=== PATIENT | male | born 1960 | race Caucasian/White ===

== ENCOUNTER → 2020-12-04 16:53 | Outpatient (CLI) | payer OTHER, SELFPAY | PROVIDERS: PCP Family Medicine; Visit Provider Family Medicine | DX: T14.8XXA Other injury of unspecified body region, initial encounter (principal) | CPT/HCPCS: 87070; 87077; 87186; 87205 ==

== ENCOUNTER 2021-11-24 12:54 | Emergency (ER) | payer OTHER, SELFPAY ==
[2021-11-24] VITALS (10 sets, daily range): BP systolic 145–163; BP diastolic 95–107; PULSE 61–73; RESP 12–23; TEMP 37.1; O2SAT 97–99; BMI 25.0
--- NOTE | 2021-11-24 12:51 | ECG_ITS ---
APPROVED REPORT Exam: Resting ECG HR:68 bpm ECG Measurements Heart Rate 68 AXES ND 174 P -13 QRSd 95 QRS 15 QT 391 T 40 QTc 409 Conclusion SINUS RHYTHM NONSPECIFIC T-WAVE ABNORMALITY BORDERLINE ECG UNCONFIRMED REPORT Electronically signed by : Sukhi Vera MD 11/24/2021 21:00:52
--- NOTE | 2021-11-24 12:57 | PC.NURSE ---
ROSALINA LAWSON at
--- NOTE | 2021-11-24 12:57 | PC.NURSE ---
ED MD AT BEDSIDE FOR EVALUATION
--- NOTE | 2021-11-24 12:59 | CT_ITS ---
FINAL REPORT CLINICAL HISTORY: weakness left side, dizziness FINDINGS: Axial images of the head were obtained without contrast. Coronal reformatted images were also obtained.This study was performed with techniques to keep radiation doses as low as reasonably achievable (ALARA). Individualized dose reduction techniques using automated exposure control or adjustment of mA and/or kV according to the patient's size were employed. There is no evidence of intracranial hemorrhage or mass. The ventricular size is within normal limits. There is no evidence of shift of the midline structures. No abnormal extra axial fluid collection is identified. No skull abnormality is seen on the bone window images. IMPRESSION: No acute intracranial abnormality. Reviewed, Interpreted and Dictated by Negrito Malone III, MD Transcribed by Cynthia Keith Authenticated and [facility]
--- NOTE | 2021-11-24 13:08 | PC.NURSE ---
pt to radiology via
--- NOTE | 2021-11-24 13:09 | PC.NURSE ---
PT TO CT PER WC AT THIS TIME
--- NOTE | 2021-11-24 13:13 | PC.NURSE ---
PT RETURNED FORM CT AT THIS TIME
[2021-11-24 13:19] LABS: Basophils # 0.1 K/mm3 (0-0.2); Basophils % 1.2 % (0.1-2.0); Eosinophils # 0.1 K/mm3 (0.0-0.4); Eosinophils % 1.5 % (0.1-12.0); Hemoglobin 14.5 g/dL (14.1-18.0); Lymphocytes % 28.1 % (10-50); Mean Corpuscular HGB Conc 33.7 g/dL (31.8-35.4); Mean Corpuscular Hemoglobin 27.6 pg (27.0-31.2); Mean Corpuscular Volume 81.7 fl (80-94); Mean Platelet Volume 7.5 fl (7.4-10.4); Monocytes # 0.4 K/mm3 (0.1-1.0); Monocytes % 5.6 % (1.7-9.3); Neutrophils # 4.6 K/mm3 (1.8-7.8); Neutrophils % 63.5 % (37.0-80.0); Platelet Count 277 K/mm3 (142-424); Red Blood Count 5.27 M/mm3 (4.60-6.20); Red Cell Distribution Width 12.6 % (11.5-17.5); White Blood Count 7.2 K/mm3 (4.8-10.8)
[2021-11-24 13:22] LABS: Chloride 105 mmol/L (98-107); Sodium 137 mmol/L (136-145)
[2021-11-24 13:23] LABS: Potassium 3.7 mmoL/L (3.5-5.1)
[2021-11-24 13:25] LABS: Alanine Aminotransferase 15 U/L (12-78); Alkaline Phosphatase 173 U/L (38-126); Aspartate Amino Transferase 29 U/L (17-59); Bilirubin,Total 0.5 mg/dl (0.2-1.3); Blood Urea Nitrogen 11 mg/dl (9-20); Creatinine Clearance Estimated 118 mL/min (50-200); Estimated Glomerular Filt Rate 99 ml/min (>60); GFR (African American) 120 ML/MIN (>60)
[2021-11-24 13:26] LABS: Albumin Level 4.2 g/dl (3.5-5.0); Albumin/Globulin Ratio 1.4 (1.1-1.8); Anion Gap 9.7 mEq/L (5-15); Carbon Dioxide 26 mmol/L (22.0-30.0); Glucose 116 mg/dl (74-100); Total Protein,Serum 7.2 g/dl (6.3-8.2)
[2021-11-24 13:37] LABS: Calcium 9.7 mg/dl (8.4-10.2)
--- NOTE | 2021-11-24 14:33 | HMH.EDGENADL ---
ED Disposition Clinical Impression: Hypertension Qualifiers: Hypertension type: primary hypertension Qualified Code(s): I10 - Essential (primary) hypertension Disposition: Home, Self-Care Condition on Discharge: Good Prescriptions: hydroCHLOROthiazide [Hydrochlorothiazide] 12.5 mg PO DAILY #14 cap Transmission Status: Pending to [id number] Referrals: Jasmyn López APRN [Primary Care Provider] - - Critical Care Critical Care Time: No Attestation: On 11/24/21, the high probability of a clinically significant, sudden or life threatening deterioration of the following system(s) required my full and direct attention, intervention and personal management. The time I documented below is in addition to time spent performing reported procedures but includes the following listed in this critical care notation. Medical Decision Making - Medical Records Medical records reviewed: Yes: I reviewed the patient's medical records. - [place] Inquiry Pt receiving controlled substance: No Vital Signs: 11/24/21 12:54 11/24/21 13:00 11/24/21 13:03 Temperature 98.8 F Temperature Source Oral Pulse Rate 73 67 Pulse Rate [Brachial] 68 Respiratory Rate 18 16 17 Blood Pressure 152/107 H 160/96 H Blood Pressure [Right Arm] 163/100 H Blood Pressure Mean 125 117 Blood Pressure Mean [Right Arm] 121 Blood Pressure Source [Right Arm] Automatic Cuff Blood Pressure Position [Right Arm] Sitting 02 Sat by Pulse Oximetry 98 98 99 Oxygen Delivery Method Room Air 11/24/21 13:05 11/24/21 13:30 11/24/21 14:00 Temperature Temperature Source Pulse Rate 65 66 61 Pulse Rate [Brachial] Respiratory Rate 17 23 23 Blood Pressure 157/101 H 154/100 H 152/97 H Blood Pressure [Right Arm] Blood Pressure Mean 121 125 119 Blood Pressure Mean [Right Arm] Blood Pressure Source [Right Arm] Blood Pressure Position [Right Arm] 02 Sat by Pulse Oximetry 98 98 Oxygen Delivery Method 11/24/21 14:30 11/24/21 15:01 Temperature Temperature Source Pulse Rate 62 68 Pulse Rate [Brachial] Respiratory Rate 12 18 Blood Pressure 145/99 H 146/101 H Blood Pressure [Right Arm] Blood Pressure Mean 119 115 Blood Pressure Mean [Right Arm] Blood Pressure Source [Right Arm] Blood Pressure Position [Right Arm] 02 Sat by Pulse Oximetry 99 98 Oxygen Delivery Method - Lab Data Lab Results 11/24/21 13:00: WBC 7.2, RBC 5.27, Hgb 14.5, Hct 43.0, MCV 81.7, MCH 27.6, MCHC 33.7, RDW 12.6, Plt Count 277, MPV 7.5, Neut % (Auto) 63.5, Lymph % (Auto) 28.1, Hidalgo % (Auto) 5.6, Eos % (Auto) 1.5, Baso % (Auto) 1.2, Neut # (Auto) 4.6, Lymph # (Auto) 2.0, Hidalgo # (Auto) 0.4, Eos # (Auto) 0.1, Baso # (Auto) 0.1 11/24/21 13:00: Sodium 137, Potassium 3.7, Chloride 105, Carbon Dioxide 26, Anion Gap 9.7, BUN 11, Creatinine 0.80, Estimated Creat Clear 118, Estimated GFR 99, Est GFR ( Amer) 120, Glucose 116 H, Calcium 9.7, Total Bilirubin 0.5, AST 29, ALT 15, Alkaline Phosphatase 173 H, Total Protein 7.2, Albumin 4.2, Globulin 3.0, Albumin/Globulin Ratio 1.4 Result diagrams: 11/24/21 13:00 11/24/21 13:00 Orders (Tests/Meds): ED MEDICATIONS Generic Name Dose Route Start Last Admin Trade Name Freq PRN Reason Stop Dose Admin Sodium Chloride 10 ml 11/24/21 13:04 Sodium Chloride 0.9% 10ml Flush Syringe IV 12/24/21 13:03 NEEDED PRN Maintain IV Site - CT Data CT Scan: Head Time Received: 15:[address] Reviewed: Yes: I have reviewed the patient's CT results, I have viewed the radiologist's interpretation Preliminary Findings: Normal/NAD - ECG Data Tracing #1 I reviewed this ECG and interpreted as documented below: Normal jugular rate of 60 bpm, KS interval 174 ms, normal QTC. Sinus rhythm with nonspecific changes. ECG initial impression date: 11/24/21 ECG initial impression time: 12:51 - Reevaluation(s) Time: 15:17 Reevaluation #1: Patient's blood pressure is improv
--- NOTE | 2021-11-24 15:12 | PC.NURSE ---
PT AND FAMILY UPDATED ON POC, MD WILL BE IN TO SEE PT. NO NEEDS AT THIS TIME
--- NOTE | 2021-11-24 15:16 | PC.NURSE ---
ED MD AT BEDSIDE TO REEVALUATE PT AND DISCUSS POC
== END 2021-11-24 15:51 | disposition home or self-care (01) ==
PROVIDERS: Emergency Provider Emergency Medicine; PCP Nurse Practitioner Family
DX: I10 Essential (primary) hypertension (principal); R07.9 Chest pain, unspecified; Z79.82 Long term (current) use of aspirin
CPT/HCPCS: 70450; 80053; 85025; 93005; 99284

== ENCOUNTER → 2021-12-15 12:52 | Outpatient (CLI) | payer OTHER, SELFPAY ==
--- NOTE | 2021-12-15 12:52 | CT_ITS ---
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 poss seen on lung. FINDINGS: Axial CT images of the chest were obtained with contrast. Coronal reformatted images were also obtained. This study was performed with techniques to keep radiation doses as low as reasonably achievable, (ALARA). Individualized dose reduction techniques using automated exposure control or adjustment of mA and/or KV according to the patient's size were employed. There are borderline size subcarinal and right hilar lymph nodes. No axillary mass or adenopathy is identified. Lung window images demonstrate a 20 mm partially cavitary nodule in the lateral right lower lobe most worrisome for neoplasm. Limited images of the upper abdomen reveal no mass or localized inflammatory process. There is a moderate chronic T12 compression fracture. A sclerotic lesion is seen in T2 most worrisome for bony metastasis. There is a lytic and sclerotic mass in the left 5th posterior rib. There is a small lytic focus in the right 8th posterior rib. IMPRESSION: Partially cavitary 20 mm nodule in the lateral right lower lobe most worrisome for neoplasm. Metastasis versus primary lung neoplasm. Lytic and sclerotic bony lesions as described most worrisome for bony metastasis. Reviewed, Interpreted and Dictated by Negrito Malone III, MD Transcribed by Bean Guadalupe Authenticated and [facility]
== END ==
PROVIDERS: PCP Family Medicine; Visit Provider Family Medicine
DX: J98.4 Other disorders of lung (principal)
CPT/HCPCS: 71260; Q9967

== ENCOUNTER → 2022-01-14 08:43 | Outpatient (CLI) | payer OTHER, SELFPAY ==
--- NOTE | 2022-01-14 08:43 | MR_ITS ---
FINAL REPORT CLINICAL HISTORY: stroke with LUE deficit. pt states he had a stroke 3 weeks ago. FINDINGS: Multiplanar MR imaging of the brain was performed without contrast. There is mild age-appropriate atrophy. There are scattered foci of increased T2 signal in the cerebral white matter that have a nonspecific appearance but likely represent mild chronic ischemic/gliotic changes. There is no evidence of intracranial hemorrhage or mass. No abnormal ventricular dilatation is identified. No abnormal extra-axial fluid collection is seen. There are several small foci of restricted diffusion in the right centrum semiovale measuring up to 9 mm consistent with small, acute infarcts. There are also small foci of restricted diffusion in the right occipital lobe cortex consistent with acute infarcts. The posterior fossa and brainstem are unremarkable. Normal major vessel vascular flow voids are seen. IMPRESSION: Age-appropriate atrophy and mild chronic ischemic/gliotic changes. Multiple, small acute right hemispheric infarcts as above. Reviewed, Interpreted and Dictated by Negrito Malone III, MD Transcribed by Araceli De Los Santos Authenticated and [facility]
== END ==
PROVIDERS: PCP Family Medicine; Visit Provider Family Medicine
DX: I63.89 Other cerebral infarction (principal)
CPT/HCPCS: 70551

== ENCOUNTER 2022-01-24 14:00 | Outpatient (RCR) | payer OTHER, SELFPAY ==
--- NOTE | 2022-01-13 11:13 | HMH.OTOPEV ---
OT Inpatient Evaluation Rehab OT Outpatient Eval Start: 01/13/22 10:38 Freq: Status: Active Protocol: Document 01/13/22 10:41 [email or web address] (Rec: 01/13/22 11:12 [facility] [id number] E-signed By Elisha Baldwin, OT Outpatient Therapy Subjective History Subjective History Pt is a 61 year old male who reports to therapy for initial evaluation to left UE. Pt reports ~2 week ago he experienced weakness in left UE and the left side of his face. He was diagnosed with a CVA. Facial symptoms have resolved. His left UE weakness/numbness has improved significantly, but he does have some continued decreased fine motor/weakness through left hand. He is left hand dominant. 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 He is currently experiencing other health conditions. 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 He also reports he is currently undergoing several diagnostic tests because of a place found on his lung. Aside from other health conditions therapy observes full range of motion and MMT at left shoulder and elbow. Pt's right wrist AROM is within normal limits, but is slightly declined in strength. His range of motion at all digits are within normal limits. However, he complains continued slight numbness in the tips of his fingers. 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 He complains of having difficulty picking up small objects with left hand and
== END 2022-01-24 14:05 | disposition home or self-care (01) ==
LOC: OT 14:00
PROVIDERS: PCP Family Medicine; Visit Provider Family Medicine
DX: I69.354 Hemiplegia and hemiparesis following cerebral infarction affecting left non-dominant side
CPT/HCPCS: 97110; 97166; 97530

== ENCOUNTER → 2022-07-12 23:48 | Outpatient (CLI) | payer OTHER, SELFPAY | PROVIDERS: PCP Family Medicine; Visit Provider Family Medicine | DX: S61.401A Unspecified open wound of right hand, initial encounter (principal); B95.7 Other staphylococcus as the cause of diseases classified elsewhere | CPT/HCPCS: 87070; 87077; 87186; 87205 ==

== ENCOUNTER → 2022-08-09 23:12 | Outpatient (CLI) | payer OTHER, SELFPAY ==
[2022-08-09 19:08] LABS: Amphetamine/Metha Screen,Urine Negative ng/ml (<1000); Barbiturates Screen,Urine Negative ng/ml (<200)
[2022-08-09 19:09] LABS: Benzodiazepines Screen,Urine Negative ng/ml (<200)
[2022-08-09 19:10] LABS: Cannabinoid Screen,Urine Negative ng/ml (<50); Cocaine Screen,Urine Negative ng/ml (<300)
[2022-08-09 19:11] LABS: Methadone Screen,Urine Negative ng/ml (<300); Opiate Screen,Urine Negative ng/ml (<300)
[2022-08-09 19:12] LABS: Phencyclidine Screen,Urine Negative ng/ml (<25)
== END ==
PROVIDERS: PCP Family Medicine; Visit Provider Family Medicine
DX: G89.29 Other chronic pain (principal)
CPT/HCPCS: 80305

== ENCOUNTER → 2022-08-26 14:40 | Outpatient (CLI) | payer OTHER, SELFPAY ==
[2022-08-26 13:47] LABS: Amphetamine/Metha Screen,Urine Negative ng/ml (<1000)
[2022-08-26 13:48] LABS: Barbiturates Screen,Urine Negative ng/ml (<200)
[2022-08-26 13:49] LABS: Benzodiazepines Screen,Urine Negative ng/ml (<200); Cannabinoid Screen,Urine Negative ng/ml (<50)
[2022-08-26 13:50] LABS: Cocaine Screen,Urine Negative ng/ml (<300)
[2022-08-26 13:51] LABS: Methadone Screen,Urine Negative ng/ml (<300); Opiate Screen,Urine Negative ng/ml (<300)
[2022-08-26 13:52] LABS: Phencyclidine Screen,Urine Negative ng/ml (<25)
== END ==
PROVIDERS: PCP Family Medicine; Visit Provider Family Medicine
DX: Z79.899 Other long term (current) drug therapy (principal)
CPT/HCPCS: 80305

== ENCOUNTER → 2023-03-17 19:24 | Outpatient (CLI) | payer OTHER, SELFPAY ==
[2023-03-17 19:35] LABS: Coronavirus 19, PCR Not Detected (NotDetected); Influenza A, PCR Not Detected (NotDetected); Influenza B, PCR Not Detected (NotDetected)
== END ==
PROVIDERS: PCP Family Medicine; Visit Provider Family Medicine
DX: R06.02 Shortness of breath (principal); R05.9 Cough, unspecified; R51.9 Headache, unspecified
CPT/HCPCS: 87636

== ENCOUNTER → 2023-04-19 07:15 | Outpatient (CLI) | payer OTHER, SELFPAY ==
[2023-04-19 20:48] LABS: Barbiturates Screen,Urine Negative ng/ml (<200)
[2023-04-19 20:49] LABS: Amphetamine/Metha Screen,Urine Negative ng/ml (<1000)
[2023-04-19 20:50] LABS: Benzodiazepines Screen,Urine Negative ng/ml (<200); Cannabinoid Screen,Urine Negative ng/ml (<50)
[2023-04-19 20:52] LABS: Opiate Screen,Urine Negative ng/ml (<300)
[2023-04-19 20:53] LABS: Cocaine Screen,Urine Negative ng/ml (<300); Methadone Screen,Urine Negative ng/ml (<300)
[2023-04-19 20:55] LABS: Phencyclidine Screen,Urine Negative ng/ml (<25)
== END ==
PROVIDERS: PCP Family Medicine; Visit Provider Family Medicine
DX: Z79.899 Other long term (current) drug therapy (principal)
CPT/HCPCS: 80305

== ENCOUNTER 2023-05-24 18:22 | Outpatient (CLI) | payer OTHER, SELFPAY ==
[2023-05-24 18:43] LABS: Amphetamine/Metha Screen,Urine Negative ng/ml (<1000)
[2023-05-24 18:46] LABS: Barbiturates Screen,Urine Negative ng/ml (<200)
[2023-05-24 18:47] LABS: Benzodiazepines Screen,Urine Negative ng/ml (<200)
[2023-05-24 18:48] LABS: Cannabinoid Screen,Urine Negative ng/ml (<50); Cocaine Screen,Urine Negative ng/ml (<300)
[2023-05-24 18:49] LABS: Methadone Screen,Urine Negative ng/ml (<300)
[2023-05-24 18:50] LABS: Opiate Screen,Urine Negative ng/ml (<300)
[2023-05-24 18:52] LABS: Phencyclidine Screen,Urine Negative ng/ml (<25)
== END 2023-05-24 23:59 ==
LOC: LAB.DROPOF 18:22
PROVIDERS: PCP Family Medicine; Visit Provider Family Medicine
DX: Z79.899 Other long term (current) drug therapy (principal)
CPT/HCPCS: 80307

== ENCOUNTER 2024-01-09 14:07 | Emergency (ER) | payer OTHER, SELFPAY ==
[2024-01-09] VITALS (12 sets, daily range): BP systolic 116–152; BP diastolic 68–85; PULSE 49–74; RESP 16–20; TEMP 36.6–36.7; O2SAT 97–100; BMI 17.4
--- NOTE | 2024-01-09 14:13 | ED_ITS ---
<Statement entered by Sin Walters MD - 01/09/24 22:49> I was consulted by the CLYDE, and we discussed the complexity of problems being addressed. I approved the treatment and management plan for this patient's care in the emergency department, thus performing a substantial portion of the medical decision making. Sin Walters MD Discharge Plan Disposition Patient Disposition: Xfer Short-Term Hosp Condition: Serious Prescriptions Prescriptions: No Action Tagrisso 80 mg tablet 80 mg PO bupropion HCl [Wellbutrin SR] 150 mg tablet sustained-release 12 hr 150 mg PO BID Qty: 180 3RF clopidogrel 75 mg tablet See Rx Instructions .ROUTE .COMPLEX Qty: 90 3RF Dose Instruction: TAKE 1 TABLET BY MOUTH ONCE DAILY FOR BLOOD THINNER Rx Instructions: TAKE 1 TABLET BY MOUTH ONCE DAILY FOR BLOOD THINNER prednisone 20 mg tablet 20 mg PO DAILY Qty: 7 0RF oxycodone-acetaminophen [Percocet] 10-325 mg tablet 1 tab PO Q6H PRN (Reason: pain) Qty: 120 0RF aspirin [Adult Aspirin Regimen] 81 mg tablet,delayed release (DR/EC) 81 mg PO DAILY Qty: 100 3RF ondansetron HCl 4 mg tablet 4 mg PO TID PRN (Reason: nausea and vomiting) Qty: 90 10RF Ensure Liquid See Rx Instructions .ROUTE .COMPLEX Qty: 80490 12RF Rx Instructions: for weight loss associated with cancer losartan 50 mg tablet See Rx Instructions .ROUTE .COMPLEX Qty: 90 2RF Dose Instruction: TAKE 1 TABLET BY MOUTH ONCE DAILY Rx Instructions: TAKE 1 TABLET BY MOUTH ONCE DAILY Referrals Follow up/Referrals: Bertin Roy MD [Primary Care Provider] - See instructions Activity Restrictions/Add. Instructions Additional Instructions/Restrictions: Patient has been accepted by the hospitalist service at [facility] Dr. Fair. Clinical Impressions Clinical Impression: Encephalopathy acute Metastatic cancer Qualifiers: Area of secondary neoplastic involvement: bone Qualified Code(s): C79.51 - Secondary malignant neoplasm of bone Print Language Print Language: Palestinian Discharge ED Provider: Sin Walters General Adult HPI <JULIA Nino - Last Filed: 01/09/24 19:48> General Chief complaint: Fall Stated complaint: Fall Time Seen by Provider: 01/09/24 14:13 History of Present Illness HPI narrative: Patient presents for evaluation of dystonia. Patient reports that 5 days ago he had a sudden syncopal event while walking through his house. He states he fell backwards striking his head. He does not know how long he was unconscious. However when he awoke he had pain in his occiput. He stated that since then I have not been right . He does not describe any focal neurologic changes but reports that he is significant inability to ambulate and is utilizing a rolling walker which is not his normal baseline. Patient does have a history of lung cancer and is actively undergoing chemotherapy every 3 weeks at [facility] in [facility]. He denies any chest pain shortness of breath fever chills hemoptysis hematochezia melena nausea vomiting diarrhea visual changes headache etc. Related Data Home Medications ?Medication ?Instructions ?Recorded ?Confirmed osimertinib 80 mg tablet (Tagrisso) 80 mg PO 04/12/22 12/20/23 Previous Rx's ?Medication ?Instructions ?Recorded aspirin 81 mg tablet,delayed 81 mg PO DAILY #100 tabs 01/14/22 release (Adult Aspirin Regimen) bupropion HCl 150 mg tablet,12 hr 150 mg PO BID #180 ea 11/01/22 sustained-release (Wellbutrin SR) losartan 50 mg tablet See Rx Instructions .Route 06/01/23 .COMPLEX #90 tabs clopidogrel 75 mg tablet See Rx Instructions .Route 07/21/23 .COMPLEX #90 tabs ondansetron HCl 4 mg tablet 4 mg PO TID PRN nausea and 09/15/23 vomiting #90 tabs prednisone 20 mg tablet 20 mg PO DAILY #7 tabs 10/16/23 food supplemt, lactose-reduced See Rx Instructions .Route 11/15/23 (Ensure oral liquid) .COMPLEX #21,330 mL oxycodone-acetaminophen 10 mg-325 1 tab PO Q6H PRN pain #120 tabs 12/15/23 mg tablet (Percocet) Allergies Allergy/AdvReac Type Severity Reaction Status Date / Time No Known Allergies Allergy Verified 11/15/23 14:01 [facility] <JULIA Nino - Last Filed: 01/09/24 19:48> [facility] Disclaimer: The information contained in this section may have been updated after the patient was seen, as this information can be updated by other users. Medical History History of stroke CVA (cerebral vascular accident) Skin cancer, upper extremity Cancer associated pain Stroke Lung cancer Hypertension Surgical History History of lung biopsy History of colonoscopy Social History Smoking Status: Current every day smoker years smoked: 30 quit status: has quit before second hand exposure: Yes alcohol intake: former current occupational status: unemployed Travel in the last 8 weeks: None <JULIA Nino - Last Filed: 01/09/24 19:48> ROS Obtained: Yes Systems reviewed as appropriate & no additional complaints except as documented Physical Exam <JULIA Nino - Last Filed: 01/09/24 19:48> General General appearance: alert and in no apparent distress Head Head exam: atraumatic and normal inspection Eye Eye exam: Present normal appearance, PERRL and EOMI ENT ENT exam: Present normal exam, normal oropharynx and mucous membranes moist Neck Neck exam: Present normal inspection, full ROM and trachea midline; Absent tenderness, meningismus or lymphadenopathy Chest Chest inspection: Present normal inspection and symmetric chest wall rise Respiratory Respiratory exam: Present normal lung sounds bilaterally and respiratory distress; Absent wheezes Cardiovascular Cardiovascular exam: Present regular rate, normal rhythm and normal heart sounds Abdominal Exam Abdominal exam: Present soft and normal bowel sounds; Absent tenderness, guarding or rebound Extremities Exam Extremities exam: Present normal inspection and full ROM; Absent tenderness, edema, joint swelling or calf tenderness Back Exam Back exam: Present normal inspection and full ROM; Absent tenderness Neurological Exam Neurological exam: Present alert, oriented X3 and CN II-XII intact; Absent motor sensory deficit or reflexes normal Psychiatric Psychiatric exam: Present normal affect and normal mood Medical Decision Making <JULIA Nino - Last Filed: 01/09/24 19:48> Medical Records Medical records reviewed: Yes I reviewed the patient's medical records. [place] Inquiry Pt receiving controlled substance: No Vital Signs: 01/09/24 14:02 01/09/24 14:47 01/09/24 15:00 Temperature 97.8 F Temperature Source Temporal Artery Scan Pulse Rate 56 L 61 Pulse Rate [Right Radial] 64 Respiratory Rate 20 18 16 Blood Pressure 144/68 H 140/85 Blood Pressure [Right Arm] 136/85 Blood Pressure Mean 89 Blood Pressure Mean [Right Arm] 102 02 Sat by Pulse Oximetry 100 100 100 Oxygen Delivery Method Room Air Room Air Room Air 01/09/24 15:11 01/09/24 15:15 01/09/24 16:04 Temperature Temperature Source Pulse Rate 53 L 50 L 74 Pulse Rate [Right Radial] Respiratory Rate Blood Pressure 140/85 150/81 H 152/79 H Blood Pressure [Right Arm] Blood Pressure Mean 103 97 103 Blood Pressure Mean [Right Arm] 02 Sat by Pulse Oximetry 100 100 97 Oxygen Delivery Method 01/09/24 16:16 01/09/24 16:30 01/09/24 16:45 Temperature Temperature Source Pulse Rate 55 L 50 L 49 L Pulse Rate [Right Radial] Respiratory Rate 16 16 Blood Pressure 131/71 147/71 H 151/79 H Blood Pressure [Right Arm] Blood Pressure Mean 91 Blood Pressure Mean [Right Arm] 02 Sat by Pulse Oximetry 100 100 100 Oxygen Delivery Method Room Air Room Air 01/09/24 17:00 Temperature Temperature Source Pulse Rate 61 Pulse Rate [Right Radial] Respiratory Rate 18 Blood Pressure 140/78 Blood Pressure [Right Arm] Blood Pressure Mean Blood Pressure Mean [Right Arm] 02 Sat by Pulse Oximetry 100 Oxygen Delivery Method Room Air Lab Data Lab results reviewed: Yes I reviewed the patient's lab results. Lab Results 01/09/24 14:55: WBC 5.1, RBC 3.17 L, Hgb 9.9 L, Hct 32.1 L, MCV 101.1 H, MCH 31.1, MCHC 30.7 L, RDW 15.2, Plt Count 205, MPV 9.0, Neut % (Auto) 76.3, Lymph % (Auto) 14.9, [place] % (Auto) 6.4, Eos % (Auto) 1.2, Baso % (Auto) 1.2, Neut # (Auto) 3.9, Lymph # (Auto) 0.8, [place] # (Auto) 0.3, Eos # (Auto) 0.1, Baso # (Auto) 0.1, Sodium 137, Potassium 3.5, Chloride 107, Carbon Dioxide 28, Anion Gap 5.5, BUN 15, Creatinine 1.00, Estimated Creat Clear 70, Estimated GFR 76, Est GFR ( Amer) 92, Glucose 104 H, Calcium 9.2, Magnesium 1.9, Total Bilirubin 0.5, AST 36, ALT 13, Alkaline Phosphatase 115, Total Protein 6.9, Albumin 3.9, Globulin 3.0, Albumin/Globulin Ratio 1.3 01/09/24 16:08: Urine Color Yellow, Urine Appearance Clear, Urine pH 6.0, Ur Specific [place] 1.020, Urine Protein Negative, Urine Glucose (UA) Negative, Urine Ketones Trace, Urine Blood Negative, Urine Nitrate Negative, Urine Bilirubin Negative, Urine Urobilinogen 0.2, Ur Leukocyte Esterase Negative, Urine RBC None, Urine WBC None, Ur Squamous Epith Cells Occasional, Urine Bacteria Trace 01/09/24 14:55 01/09/24 14:55 Orders (Tests/Meds): ED MEDICATIONS Generic Name Dose Route Start Last Admin Trade Name Freq PRN Reason Stop Dose Admin Nicotine 21 mg 01/09/24 18:10 01/09/24 18:14 Nicotine 21mg/24hr Patch TD 02/08/24 18:09 21 mg DAILYP PRN Administration Nicotine Cravings Discontinued Medications Generic Name Dose Route Start Last Admin Trade Name Freq PRN Reason Stop Dose Admin Acetaminophen 1,000 mg 01/09/24 14:15 01/09/24 14:59 Acetaminophen 1,000mg/100ml Vial IV 01/09/24 14:16 1,000 mg ONCE ONE Administration Dexamethasone Sodium Phosphate 10 mg 01/09/24 18:00 01/09/24 19:05 Dexamethasone 4mg/Ml 1ml Vial IV 01/09/24 18:01 10 mg ONCE ONE Administration Droperidol 2.5 mg 01/09/24 18:53 01/09/24 19:05 Droperidol 5mg/2ml Vial IV 01/09/24 18:54 2.5 mg ONCE ONE Administration Lactated Ringer's 1,000 mls @ 999 mls/hr 01/09/24 14:15 01/09/24 14:59 Lactated Ringer's 1000 Ml Bag IV 01/09/24 15:15 999 mls/hr .Q1H1M ONE Administration Iopamidol 140 ml 01/09/24 15:52 01/09/24 15:54 Iopamidol-370 (76%);100ml Bottle IV 01/09/24 15:53 140 ml ONCE ONE Administration Ondansetron HCl 4 mg 01/09/24 14:15 01/09/24 14:59 Ondansetron 4mg/2ml Vial IV 01/09/24 14:16 4 mg ONCE ONE Administration Sodium Chloride 50 ml 01/09/24 15:52 01/09/24 15:54 0.9 % Sodium Chloride 50 Ml Vial IV 01/09/24 15:53 50 ml ONCE ONE Administration Sodium Chloride 10 ml 01/09/24 15:52 01/09/24 15:54 Sodium Chloride 0.9% 10ml Syr (Rad Only) IV 01/09/24 15:53 10 ml ONCE ONE Administration ORDERS Category Date Time Status CT angio chest - dissection Stat Cat Scan 01/09/24 15:[address] angio head Stat Cat Scan 01/09/24 14:[address] angio neck Stat Cat Scan 01/09/24 14:[address] cervical spine wo con Stat Cat Scan 01/09/24 14:[address] head/brain wo con Stat Cat Scan 01/09/24 14:15 Completed CBC w/Auto Diff [Complete Blood Count Auto Diff] Stat Lab 01/09/24 14:55 Completed CMP [Comprehensive Metabolic Panel] Stat Lab 01/09/24 14:55 Completed Magnesium Stat Lab 01/09/24 14:55 Completed UA [Urinalysis and Microscopic] Stat Lab 01/09/24 16:08 Completed Medical Decision Narrative: IntactIn summary patient is a 63-year-old male who presents to the emergency department for evaluation of unprovoked syncope and asthenia. Patient has had multiple falls in the last 5 days after the initial syncopal event and reports confusion and occasional dizziness disorientation intermittently as well. Patient is hemodynamically stable upon arrival, afebrile. Physical exam is remarkable for no focal neurologic deficits, Bijan Coma Score 15, and NIH stroke score of 0 and subjective pain around the occiput but no visible trauma bony deformity meningeal signs.. Differential diagnosis includes ischemic stroke versus intracranial hemorrhage versus functional decline versus electrolyte abnormality versus infection etc. Initial workup will be conducted with hematologic labs urinalysis CT of the head and C-spine without contrast and CTA of the head neck and chest. Initial interventions include crystalloid bolus Tylenol. Initial workup reviewed by me shows his hematologic labs are nonactionable however his imaging shows ventriculomegaly with possible periventricular edema, no vascular occlusion in the head or neck and does show bony mets in the axial skeleton and in C5. Given that we have reached out to [facility] in [place] to attempt to talk to neurosurgery at [address] spoke to Dr. Ojeda the on-call neurosurgeon from [facility] who informed me that he is not on-call for our ER despite the fact that I told him that the patient is established at [facility] for hematology oncology and we do not have neurosurgery or emergent MRI capability and he recommended he go anywhere else and I documented that I would do exactly that. I have subsequently contacted [facility] to discuss patient management at 1755. Unfortunately the [facility] is on divert and patient's doses does not meet bypass criteria. They did confer with neurosurgery prior to making that decision. Subsequently I have reached back out to [facility] to speak to the hospitalist about patient management at 1845. He has been accepted to [facility] care of Dr. Summers. <Sin Walters MD - Last Filed: 01/09/24 19:49> Vital Signs: 01/09/24 14:02 01/09/24 14:47 01/09/24 15:00 Temperature 97.8 F Temperature Source Temporal Artery Scan Pulse Rate 56 L 61 Pulse Rate [Right Radial] 64 Respiratory Rate 20 18 16 Blood Pressure 144/68 H 140/85 Blood Pressure [Right Arm] 136/85 Blood Pressure Mean 89 Blood Pressure Mean [Right Arm] 102 02 Sat by Pulse Oximetry 100 100 100 Oxygen Delivery Method Room Air Room Air Room Air 01/09/24 15:11 01/09/24 15:15 01/09/24 16:04 Temperature Temperature Source Pulse Rate 53 L 50 L 74 Pulse Rate [Right Radial] Respiratory Rate Blood Pressure 140/85 150/81 H 152/79 H Blood Pressure [Right Arm] Blood Pressure Mean 103 97 103 Blood Pressure Mean [Right Arm] 02 Sat by Pulse Oximetry 100 100 97 Oxygen Delivery Method 01/09/24 16:16 01/09/24 16:30 01/09/24 16:45 Temperature Temperature Source Pulse Rate 55 L 50 L 49 L Pulse Rate [Right Radial] Respiratory Rate 16 16 Blood Pressure 131/71 147/71 H 151/79 H Blood Pressure [Right Arm] Blood Pressure Mean 91 Blood Pressure Mean [Right Arm] 02 Sat by Pulse Oximetry 100 100 100 Oxygen Delivery Method Room Air Room Air 01/09/24 17:00 Temperature Temperature Source Pulse Rate 61 Pulse Rate [Right Radial] Respiratory Rate 18 Blood Pressure 140/78 Blood Pressure [Right Arm] Blood Pressure Mean Blood Pressure Mean [Right Arm] 02 Sat by Pulse Oximetry 100 Oxygen Delivery Method Room Air Lab Data Lab Results 01/09/24 14:55: WBC 5.1, RBC 3.17 L, Hgb 9.9 L, Hct 32.1 L, MCV 101.1 H, MCH 31.1, MCHC 30.7 L, RDW 15.2, Plt Count 205, MPV 9.0, Neut % (Auto) 76.3, Lymph % (Auto) 14.9, [place] % (Auto) 6.4, Eos % (Auto) 1.2, Baso % (Auto) 1.2, Neut # (Auto) 3.9, Lymph # (Auto) 0.8, [place] # (Auto) 0.3, Eos # (Auto) 0.1, Baso # (Auto) 0.1, Sodium 137, Potassium 3.5, Chloride 107, Carbon Dioxide 28, Anion Gap 5.5, BUN 15, Creatinine 1.00, Estimated Creat Clear 70, Estimated GFR 76, Est GFR ( Amer) 92, Glucose 104 H, Calcium 9.2, Magnesium 1.9, Total Bilirubin 0.5, AST 36, ALT 13, Alkaline Phosphatase 115, Total Protein 6.9, Albumin 3.9, Globulin 3.0, Albumin/Globulin Ratio 1.3 01/09/24 16:08: Urine Color Yellow, Urine Appearance Clear, Urine pH 6.0, Ur Specific [place] 1.020, Urine Protein Negative, Urine Glucose (UA) Negative, Urine Ketones Trace, Urine Blood Negative, Urine Nitrate Negative, Urine Bilirubin Negative, Urine Urobilinogen 0.2, Ur Leukocyte Esterase Negative, Urine RBC None, Urine WBC None, Ur Squamous Epith Cells Occasional, Urine Bacteria Trace Orders (Tests/Meds): ED MEDICATIONS Generic Name Dose Route Start Last Admin Trade Name Freq PRN Reason Stop Dose Admin Nicotine 21 mg 01/09/24 18:10 01/09/24 18:14 Nicotine 21mg/24hr Patch TD 02/08/24 18:09 21 mg DAILYP PRN Administration Nicotine Cravings Discontinued Medications Generic Name Dose Route Start Last Admin Trade Name Sanjeevq PRN Reason Stop Dose Admin Acetaminophen 1,000 mg 01/09/24 14:15 01/09/24 14:59 Acetaminophen 1,000mg/100ml Vial IV 01/09/24 14:16 1,000 mg ONCE ONE Administration Dexamethasone Sodium Phosphate 10 mg 01/09/24 18:00 01/09/24 19:05 Dexamethasone 4mg/Ml 1ml Vial IV 01/09/24 18:01 10 mg ONCE ONE Administration Droperidol 2.5 mg 01/09/24 18:53 01/09/24 19:05 Droperidol 5mg/2ml Vial IV 01/09/24 18:54 2.5 mg ONCE ONE Administration Lactated Ringer's 1,000 mls @ 999 mls/hr 01/09/24 14:15 01/09/24 14:59 Lactated Ringer's 1000 Ml Bag IV 01/09/24 15:15 999 mls/hr .Q1H1M ONE Administration Iopamidol 140 ml 01/09/24 15:52 01/09/24 15:54 Iopamidol-370 (76%);100ml Bottle IV 01/09/24 15:53 140 ml ONCE ONE Administration Ondansetron HCl 4 mg 01/09/24 14:15 01/09/24 14:59 Ondansetron 4mg/2ml Vial IV 01/09/24 14:16 4 mg ONCE ONE Administration Sodium Chloride 50 ml 01/09/24 15:52 01/09/24 15:54 0.9 % Sodium Chloride 50 Ml Vial IV 01/09/24 15:53 50 ml ONCE ONE Administration Sodium Chloride 10 ml 01/09/24 15:52 01/09/24 15:54 Sodium Chloride 0.9% 10ml Syr (Rad Only) IV 01/09/24 15:53 10 ml ONCE ONE Administration ORDERS Category Date Time Status CT angio chest - dissection Stat Cat Scan 01/09/24 15:[address] angio head Stat Cat Scan 01/09/24 14:[address] angio neck Stat Cat Scan 01/09/24 14:[address] cervical spine wo con Stat Cat Scan 01/09/24 14:[address] head/brain wo con Stat Cat Scan 01/09/24 14:15 Completed CBC w/Auto Diff [Complete Blood Count Auto Diff] Stat Lab 01/09/24 14:55 Completed CMP [Comprehensive Metabolic Panel] Stat Lab 01/09/24 14:55 Completed Magnesium Stat Lab 01/09/24 14:55 Completed UA [Urinalysis and Microscopic] Stat Lab 01/09/24 16:08 Completed ECG Data Tracing #1: I reviewed this ECG and interpreted as documented below: Normal sinus rhythm with no acute ischemic ST changes. Critical Care <JULIA Nino - Last Filed: 01/09/24 19:48> Critical Care Time Critical Care Time: No
--- NOTE | 2024-01-09 14:15 | CT_ITS ---
FINAL REPORT TECHNIQUE: Axial imaging of the head was obtained without contrast. This study was performed with techniques to keep radiation doses as low as reasonably achievable, (ALARA). Individualized dose reduction techniques using automated exposure control or adjustment of mA and/or kV according to the patient''s size were employed. CLINICAL HISTORY: Asthenia, altered mental status COMPARISON: 11/24/2021 FINDINGS: There is moderate, new ventriculomegaly consistent with hydrocephalus. Periventricular low-attenuation may represent periventricular edema. There is no evidence of hemorrhage. No masses are identified. No extra-axial fluid is seen. The sinuses are normal. There is no acute osseous abnormality. IMPRESSION: Moderate new ventriculomegaly consistent with hydrocephalus. Reviewed, Interpreted and Dictated by Negrito Malone III, MD Transcribed by Cynthia Keith Authenticated and [facility]
--- NOTE | 2024-01-09 14:21 | CT_ITS ---
FINAL REPORT TECHNIQUE: Thin section axial CT with IV contrast supplemented with multiplanar reconstruction under CT angiogram protocol. 3-D reconstructions were performed. This study was performed with techniques to keep radiation doses as low as reasonably achievable (ALARA). Individualized dose reduction techniques using automated exposure control or adjustment of mA and/or kV according to the patient''s size were employed. CLINICAL HISTORY: Syncope, asthenia FINDINGS: No aneurysm is seen. Major intracranial vessels are patent without significant stenosis. IMPRESSION: No evidence of stenosis or major branch occlusion. Reviewed, Interpreted and Dictated by Negrito Malone III, MD Transcribed by Cynthia Keith Authenticated and [facility]
--- NOTE | 2024-01-09 14:26 | CT_ITS ---
FINAL REPORT TECHNIQUE: Thin section axial CT with IV contrast supplemented with multiplanar reconstruction under CT angiogram protocol. This study was performed with techniques to keep radiation doses as low as reasonably achievable (ALARA). Individualized dose reduction techniques using automated exposure control or adjustment of mA and/or kV according to the patient''s size were employed. NASCET criteria was utilized during interpretation. CLINICAL HISTORY: Syncope, asthenia FINDINGS: Aortic arch: Arch shows no significant narrowing. Great vessel origins are widely patent. Right carotid: No significant stenosis is seen of the cervical common or internal carotid artery. Left carotid: No significant stenosis is seen of the cervical common or internal carotid artery. Vertebral: Left vertebral artery is dominant. No significant stenosis is present. IMPRESSION: No significant stenosis identified. Reviewed, Interpreted and Dictated by Negrito Malone III, MD Transcribed by Cynthia Keith Authenticated and . [facility]
--- NOTE | 2024-01-09 14:26 | CT_ITS ---
FINAL REPORT CLINICAL HISTORY: Syncope, dystonia FINDINGS: Axial CT images of the cervical spine were obtained without contrast. Sagittal and coronal reformatted images were also obtained. This study was performed with techniques to keep radiation doses as low as reasonably achievable (ALARA). Individualized dose reduction techniques using automated exposure control or adjustment of mA and/or kV according to the patient's size were employed. There is no evidence of fracture or dislocation. Mild degenerative changes are present. There is a 5 mm sclerotic focus in the left C5 vertebral body of uncertain etiology, sclerotic metastases is not excluded. IMPRESSION: Sclerotic focus in the C5 vertebral body, sclerotic metastases is not excluded. Reviewed, Interpreted and Dictated by Negrito Malone III, MD Transcribed by Cynthia Keith Authenticated and [facility]
[2024-01-09 14:58] LABS: Basophils # 0.1 K/mm3 (0-0.2); Basophils % 1.2 % (0.1-2.0); Eosinophils # 0.1 K/mm3 (0.0-0.4); Eosinophils % 1.2 % (0.1-12.0); Hematocrit 32.1 % (42.0-52.0); Hemoglobin 9.9 g/dL (14.1-18.0); Lymphocytes # 0.8 K/mm3 (0.7-4.5); Lymphocytes % 14.9 % (10-50); Mean Corpuscular HGB Conc 30.7 g/dL (31.8-35.4); Mean Corpuscular Hemoglobin 31.1 pg (27.0-31.2); Mean Corpuscular Volume 101.1 fl (80-94); Monocytes # 0.3 K/mm3 (0.1-1.0); Monocytes % 6.4 % (1.7-9.3); Neutrophils # 3.9 K/mm3 (1.8-7.8); Neutrophils % 76.3 % (37.0-80.0); Platelet Count 205 K/mm3 (142-424); Red Blood Count 3.17 M/mm3 (4.60-6.20); Red Cell Distribution Width 15.2 % (11.5-17.5); White Blood Count 5.1 K/mm3 (4.8-10.8)
[2024-01-09] MEDS: ONDANSETRON 4MG/2ML VIAL 4 MG IV (14:59)
[2024-01-09] MEDS: LACTATED RINGERS 1000ML 1,000 ML 999 ML IV (14:59)
[2024-01-09] MEDS: ACETAMINOPHEN 1,000MG/100ML VIAL 1000 MG IV (14:59)
[2024-01-09 15:04] LABS: Albumin Level 3.9 g/dl (3.5-5.0); Chloride 107 mmol/L (98-107); Potassium 3.5 mmoL/L (3.5-5.1); Sodium 137 mmol/L (136-145)
[2024-01-09 15:07] LABS: Alanine Aminotransferase 13 U/L (12-78); Albumin/Globulin Ratio 1.3 (1.1-1.8); Alkaline Phosphatase 115 U/L (38-126); Anion Gap 5.5 mEq/L (5-15); Aspartate Amino Transferase 36 U/L (17-59); Bilirubin,Total 0.5 mg/dl (0.2-1.3); Blood Urea Nitrogen 15 mg/dl (9-20); Carbon Dioxide 28 mmol/L (22.0-30.0); Creatinine Clearance Estimated 70 mL/min (50-200); Estimated Glomerular Filt Rate 76 ml/min (>60); GFR (African American) 92 ML/MIN (>60); Total Protein,Serum 6.9 g/dl (6.3-8.2)
[2024-01-09 15:08] LABS: Calcium 9.2 mg/dl (8.4-10.2); Glucose 104 mg/dl (74-100); Magnesium 1.9 mg/dl (1.6-2.3)
--- NOTE | 2024-01-09 15:13 | CT_ITS ---
FINAL REPORT CLINICAL HISTORY: Syncope, hx of lung ca, smoker COMPARISON: 12/15/2021 FINDINGS: Thin section axial CT images of the chest were obtained with contrast. 3D reformatted images were also obtained. This study was performed with techniques to keep radiation doses as low as reasonably achievable (ALARA). Individualized dose reduction techniques using automated exposure control or adjustment of mA and/or kV according to the patient's size were employed. There is no evidence of pulmonary embolism. There is no evidence of thoracic aortic aneurysm or dissection. There is no evidence of mediastinal or hilar mass or adenopathy. There is a cavitary nodule in the right lower lobe measuring 16 mm, previously measured 22 mm consistent with improving neoplasm. No new mass or nodule is identified. Note is made of mild scarring in the right lung base. The osseous structures demonstrate widespread sclerotic foci consistent with bony metastatic disease. This is new since the previous. Limited images of the upper abdomen are unremarkable. IMPRESSION: Cavitary nodule in the right lower lobe, decreased in size. Findings consistent with bony metastatic disease, new since previous. Reviewed, Interpreted and Dictated by Negrito Malone III, MD Transcribed by Cynthia Keith Authenticated and [facility]
[2024-01-09] MEDS: SODIUM CHLORIDE 0.9% 10ML SYR (RAD ONLY) 10 ML IV (15:54)
[2024-01-09] MEDS: 0.9 % SODIUM CHLORIDE 50 ML VIAL IV (15:54)
[2024-01-09] MEDS: IOPAMIDOL-370 (76%);100ML BOTTLE 140 ML IV (15:54)
[2024-01-09 16:14] LABS: Microscopic, Urine URINE MICROSCOPIC (MICROSCOPIC)
[2024-01-09 16:17] LABS: Appearance,Urine CLEAR (Clear); Bilirubin,Urine Negative (Negative); Blood, Urine Negative (Negative); Color,Urine YELLOW (Yellow); Glucose,Urine (UA) Negative (Negative); Ketones,Urine TRACE (Negative); Leukocyte Esterase,Urine Negative (Negative); Nitrate,Urine Negative (Negative); Protein,Urine Negative (Negative); Urobilinogen,Urine 0.2 EU/dl (0.2)
[2024-01-09 16:25] LABS: Bacteria,Urine Trace /lpf; Squamous Epithelial Cell,Urine Occasional #/hpf (0-5)
--- NOTE | 2024-01-09 17:05 | PC.NURSE ---
Spoke with Tamra at [facility] at [phone] and requested for patient to be transferred to [facility] and consult with oncology/ neurosurgery regarding patient care. Tamra states well i doubt ill be able to get him up here tonight bc they are holding 27 in [facility] replied thats fine we still want to doc to his doctors. Provided ER number and doctor number so that they can call us back
--- NOTE | 2024-01-09 17:55 | PC.NURSE ---
Called [facility] per Dr Abrams to speak with them about this pt. [facility] advised that they would call us back
[2024-01-09] MEDS: NICOTINE 21MG/24HR PATCH 21 MG TD (18:14)
--- NOTE | 2024-01-09 19:00 | ECG_ITS ---
APPROVED REPORT Exam: Resting ECG HR:63 bpm ECG Measurements Heart Rate 63 AXES QRSd 93 QRS 0 QT 427 T 93 QTc 435 Conclusion SUPRAVENTRICULAR RHYTHM NONSPECIFIC ST & T-WAVE ABNORMALITY ABNORMAL ECG UNCONFIRMED REPORT Electronically signed by : SUHAS MELLO, 01/10/2024 06:56:12
[2024-01-09] MEDS: DEXAMETHASONE 4MG/ML 1ML VIAL 10 MG IV (19:05)
[2024-01-09] MEDS: droPERidol 5MG/2ML VIAL 2.5 MG IV (19:05)
--- NOTE | 2024-01-09 19:05 | PC.NURSE ---
[facility] [place] called Dr Golden back and is speaking with him now.
--- NOTE | 2024-01-09 20:07 | PC.NURSE ---
[facility] RM # [id number] and number to call report [phone]
--- NOTE | 2024-01-09 20:21 | PC.NURSE ---
called report to terrie portillo on 6c at [facility] and answered all questions
--- NOTE | 2024-01-09 20:30 | PC.NURSE ---
spoke with [facility] about patient transfer
== END 2024-01-09 21:07 | disposition short-term general hospital (02) ==
PROVIDERS: Physician Assistant; Emergency Provider Emergency Medicine; PCP Family Medicine
DX: G93.49 Other encephalopathy (principal); R55 Syncope and collapse; S09.8XXA Other specified injuries of head, initial encounter; W19.XXXA Unspecified fall, initial encounter; Y92.9 Unspecified place or not applicable; I10 Essential (primary) hypertension; Z86.73 Personal history of transient ischemic attack (TIA), and cerebral infarction without residual deficits; C34.90 Malignant neoplasm of unspecified part of unspecified bronchus or lung; F17.200 Nicotine dependence, unspecified, uncomplicated
CPT/HCPCS: 70450; 70496; 70498; 71275; 72125; 80053; 81001; 83735; 85025; 93005; 96361; 96374; 96375; 99285; J0131; J1100; J1790; J2405; J7120; Q9967